=== PATIENT | male | born 1980 ===

== ENCOUNTER 2023-08-04 18:06 | Emergency (ER) | payer SELFPAY ==
--- NOTE | ~2023-08-04 | US_ITS ---
US scrotum doppler INDICATION: Left testicular pain for 3 months TECHNIQUE: Testicular sonogram utilizing grayscale and color Doppler FINDINGS: The testes are normal in size and appearance. No focal lesions are seen. The right testes measures 4.5 x 2.3 x 3.4 cm centimeters, and the left testis measures 4.3 x 2.6 x 3.2 cm cm. There is normal vascular flow to both testes. There are multiple small right epididymal cysts. There is a small complicated right hydrocele. No varicocele. IMPRESSION: 1. Small complicated right hydrocele. 2: Right epididymal cysts. Reviewed, dictated and finalized at location A.
[2023-08-04 18:10] VITALS: BP 175/90; PULSE 90; RESP 18; TEMP 37.1; O2SAT 100
== END 2023-08-04 23:52 | disposition left against medical advice (07) ==
PROVIDERS: Emergency Provider Emergency Medicine; PCP Nurse Practitioner Family
DX: N50.812 Left testicular pain (principal)
CPT/HCPCS: 76870; 93976; 99199